=== PATIENT | male | born 1965 | race African-American/Black ===

== ENCOUNTER 2018-11-08 21:27 | Emergency (ER) | payer OTHER ==
[~2018-11-08] VITALS: Ht 167.6 cm; Wt 99.0 kg
[2018-11-08] MEDS ORDERED: KETOROLAC 60MG/2ML VIAL IM ONE (22:30)
[2018-11-08 23:20] VITALS: BP 134/77
== END 2018-11-08 23:22 | disposition home or self-care (01) ==
LOC: ER 21:27
DX: M75.22 Bicipital tendinitis, left shoulder (principal); F12.10 Cannabis abuse, uncomplicated
CPT/HCPCS: 73030; 96372; 99283; J1885